=== PATIENT | male | born 1965 | race Caucasian/White ===

== ENCOUNTER 2016-12-16 23:32 | Emergency (ER) | payer MEDICAID ==
[~2016-12-16] VITALS: Ht 172.7 cm; Wt 79.5 kg
[2016-12-17 00:05] VITALS: Ht 172.7 cm; Wt 79.5 kg
[2016-12-17] MEDS ORDERED: ONDANSETRON 4 MG INJ ONE (02:00)
[2016-12-17] MEDS ORDERED: morphine 10 MG INJ IV ONE (02:00)
[2016-12-17] MEDS ORDERED: ONDANSETRON 4 MG INJ IV STA (02:14)
[2016-12-17] MEDS ORDERED: CEFAZOLIN 1 GM/50 ML (PMX) 50 ML IVPB SCH (02:30)
--- NOTE | 2016-12-17 02:36 | RADRPT ---
PROCEDURE: XR Elbow. CLINICAL INDICATION: Left elbow deformity status post fall. TECHNIQUE: AP, lateral and oblique views of the left elbow performed. COMPARISON: None. FINDINGS: There is normal mineralization and alignment. Fracture of the olecranon with intra-articular compone nt. There is 3 cm distraction of the proximal fragment. Remaining osseous structures are without ev ident acute fracture. Soft tissue swelling over the left elbow and proximal left forearm. IMPRESSION: Fracture of the olecranon with intra-articular component and 3 cm distraction of the proximal fragme nt. RPTAT: [facility] Physician Kelly Date Time Electronically viewed and signed by Physician Kelly on 12/17/2016 02:35 RS/
[2016-12-17] MEDS ORDERED: HYDROmorphONE 1 MG/ML SYG IV STA (02:45)
[2016-12-17] MEDS ORDERED: ETOMIDATE 20 MG INJ IV ONE (03:30)
--- NOTE | 2016-12-17 04:01 | RADRPT ---
PROCEDURE: XR Elbow. CLINICAL INDICATION: Reduction of olecranon fracture TECHNIQUE: Two views of the left elbow performed. COMPARISON: 12/17 FINDINGS: Both views are somewhat oblique. The olecranon fracture is again seen with less distraction and ang ulation previously. A fiberglass splint is now in place. IMPRESSION: Decreased distraction and angulation of the intra-articular olecranon fracture. RPTAT: [facility] Francisca Aguayo Physician Date Time Electronically viewed and signed by Francisca Aguayo, Physician on 12/17/2016 04:01 LE/
[2016-12-17] MEDS ORDERED: HYDR-906 PO (04:33)
[2016-12-17] MEDS ORDERED: IBUP-1542 PO (04:33)
--- NOTE | 2016-12-17 05:05 | ERD ---
ER Documentation Chief Complaint Date/Time DATE: 12/17/16 TIME: 04:54 Chief Complaint Left arm pain HPI This 51-year-old help presented status post trip and fall on his wet steps in the rain with left elbow pain. He struck his left elbow on the ground. Is a small laceration in the area has bled as well. Denies any other pain or injuries in any other part of his body. States that his pain is 122 out of 10. Denies head injury loss of consciousness. ROS All systems reviewed and are negative except as per history of present illness. Medications Home Meds Active Scripts Ibuprofen* (Motrin*) 600 Mg Tab, 600 MG PO Q6H Y for PAIN AND OR ELEVATED TEMP, #30 TAB Prov:NANCIEREANNAJOANIE GRANADO 12/17/16 Hydrocodone/Acetaminophen (Chester 5-325 Tablet) 1 Each Tablet, 1 EACH PO Q6, #14 TAB Prov:MAMIE CANADAUA 12/17/16 Reported Medications [None] No Conflict Check 06/29/10 Allergies Allergies: Coded Allergies: No Known Drug Allergy (Verified Allergy, Mild, 06/29/10) PMhx/Soc Medical and Surgical Hx: pt denies Medical Hx, pt denies Surgical Hx History of Surgery: No Anesthesia Reaction: No Hx Neurological Disorder: No Hx Respiratory Disorders: No Hx Cardiac Disorders: No Hx Psychiatric Problems: No Hx Miscellaneous Medical Probl: No Hx Alcohol Use: Yes Hx Substance Use: No Hx Tobacco Use: No Smoking Status: Never smoker Physical Exam Vitals Vital Signs Date Time Temp Pulse Resp B/P Pulse Ox O2 Delivery O2 Flow Rate FiO2 12/17/16 00:05 97.6 118 20 194/104 98 Physical Exam Const: [] No apparent distress. Head: Atraumatic Eyes: Normal Conjunctiva, EOMI, TANA ENT: Normal External Ears, Nose and Mouth. Neck: Full range of motion..~ No meningismus. Skin: No petechiae or rashes Back: No midline or flank tenderness Ext: Left elbow with significant swelling of the ulnar aspect of the proximal forearm. Arm is held in 90 flexion by the patient. Distal pulses are intact with bounding radial pulses. Motor and sensation are intact of the hand. Elbow is exquisitely tender to palpation. Neur: Awake and alert and oriented 3, no focal deficits Psych: Normal Mood and Affect Results 24 hrs Current Medications Medications (Trade) Dose Ordered Sig/Delisa Route PRN Reason Start Time Stop Time Status Last Admin Dose Admin Morphine Sulfate (morphine) 8 mg ONCE ONCE IV 12/17/16 02:00 12/17/16 02:01 DC 12/17/16 02:11 Ondansetron HCl (Zofran Inj) 4 mg STK-MED ONCE .ROUTE 12/17/16 02:00 12/17/16 02:01 DC Ondansetron HCl 4 mg 4 mg ONCE STAT IV 12/17/16 02:14 12/17/16 02:15 DC 12/17/16 02:26 Cefazolin Sodium (Ancef 1 Gm/50 ml (Pmx)) 50 ml @ 100 mls/hr ONCE IVPB 12/17/16 02:30 12/17/16 02:59 DC 12/17/16 02:26 Hydromorphone HCl (Dilaudid) 1 mg ONCE STAT IV 12/17/16 02:45 12/17/16 02:46 DC 12/17/16 03:11 Etomidate (Amidate) 20 mg ONCE ONCE IV 12/17/16 03:30 12/17/16 03:31 DC Procedures/MDM Proximal ulnar fracture with significant displacement and intra-articular involvement. Spoke with Dr. Hernandez, orthopedist on-call, stated this could be managed as an outpatient. Patient was initially given 8 mg of morphine and said this brought his pain down to 48 out of 10. He was calm and he was smiling when he said it. He been given 4 of Zofran as well. He was then given 1 mg of Dilaudid. Close reduction was performed with the patient under procedural sedation. There was splinted in 90 flexion. Patient is being discharged with primary care and orthopedic follow-up instructions. Also discharging with Chester and ibuprofen. Procedural sedation note: With her therapist present at bedside patient on a nonrebreather mask and school lunch monitor while 20 mg of etomidate was given. This provided excellent procedural sedation the patient emerged with no complications. Vital signs remained stable throughout the procedure. Laceration repair note: After copious irrigation 1 cm laceration with active bleeding to left proximal forearm below the elbow was sutured using 2 4-0 silk simple ruptured sutures in a X pattern. Hemostasis was achieved. Patient tolerated the procedure well with no complications. Fracture reduction note: Under procedural sedation the arm is held in 90 angle while slight pressure was applied to the proximal about the elbow joint. Displaced fracture was palpable in evident. Patient was manipulated back into place. Initial x-ray at the bedside showed good angulation. Posterior mold splint was placed at the same time after which time the x-ray showed partial return of fragments are displaced state however the angle was still better than prior. Patient tied the procedure well there were no complications. ED splint application note: Fiberglas posterior mold splint was applied a hold arm in 90 flexion about the elbow. Patient rated tolerated this procedure well or no complications. I performed a neurovascular and motor assessment after the splint application and the patient was awake. He still had motor sensory and vascular function intact with no abnormalities. Departure Diagnosis: Primary Impression: Laceration of left forearm Additional Impressions: Left ulnar fracture Fracture of left proximal ulna Condition: Stable Patient Instructions: Elbow Fracture Referrals: [facility] YOU HAVE RECEIVED A MEDICAL SCREENING EXAM AND THE RESULTS INDICATE THAT YOU DO NOT HAVE A CONDITION THAT REQUIRES URGENT TREATMENT IN THE EMERGENCY DEPARTMENT. FURTHER EVALUATION AND TREATMENT OF YOUR CONDITION CAN WAIT UNTIL YOU ARE SEEN IN YOUR DOCTORS OFFICE WITHIN THE NEXT 1-2 DAYS. IT IS YOUR RESPONSIBILITY TO MAKE AN APPOINTMENT FOR FOL-UP CARE. IF YOU HAVE A PRIMARY DOCTOR --you should call your primary doctor and schedule an appointment IF YOU DO NOT HAVE A PRIMARY DOCTOR YOU CAN CALL OUR PHYSICIAN REFERRAL HOTLINE AT IF YOU CAN NOT AFFORD TO SEE A PHYSICIAN YOU CAN CHOSE FROM THE FOLLOWING [facility] [address] [facility]. [facility] [address] [facility]. [facility] [address] [facility]. [facility] [address] [facility]. [facility] [address] [facility]. [facility] [address] [facility] YOU HAVE RECEIVED A MEDICAL SCREENING EXAM AND THE RESULTS INDICATE THAT YOU DO NOT HAVE A CONDITION THAT REQUIRES URGENT TREATMENT IN THE EMERGENCY DEPARTMENT. FURTHER EVALUATION AND TREATMENT OF YOUR CONDITION CAN WAIT UNTIL YOU ARE SEEN IN YOUR DOCTORS OFFICE WITHIN THE NEXT 1-2 DAYS. IT IS YOUR RESPONSIBILITY TO MAKE AN APPOINTMENT FOR FOLOW-UP CARE. IF YOU HAVE A PRIMARY DOCTOR --you should call your primary doctor and schedule and appointment IF YOU DO NOT HAVE A PRIMARY DOCTOR YOU CAN CALL OUR PHYSICIAN REFERRAL HOTLINE AT . IF YOU CAN NOT AFFORD TO SEE A PHYSICIAN YOU CAN CHOSE FROM THE FOLLOWING [facility] INSTITUTIONS: [facility] [address] [place] [address] [facility] [address] [place] [address] [facility] + [facility] [address] [place] [address] Additional Instructions: Call your primary care doctor TOMORROW for an appointment during the next 2-3 days. Obtain a referral for an ORTHOPEDIST. Try calling Dr. Hernandez for follow up. See the doctor sooner or return here if your condition worsens before your appointment time. REANNA CANADA DO Dec 17, 2016 05:05
[2016-12-17 05:22] VITALS: BP 160/114; PULSE 99; RESP 20; TEMP 97.6
== END 2016-12-17 05:25 | disposition home or self-care (01) ==
LOC: E/R 23:32
DX: S51.812A Laceration without foreign body of left forearm, initial encounter (principal); S52.032A Displaced fracture of olecranon process with intraarticular extension of left ulna, initial encounter for closed fracture; W01.0XXA Fall on same level from slipping, tripping and stumbling without subsequent striking against object, initial encounter; Y92.9 Unspecified place or not applicable
CPT/HCPCS: 12001; 24600; 73070; 73080; 94770; 96374; 96375; J0690; J1170; J2270; J2405; Z7502; Z7610